=== PATIENT | female | born 1970 | race Asian ===

== ENCOUNTER 2025-05-27 22:27 | Emergency (ER) | payer MEDICAID ==
[~2025-05-27] VITALS: Ht 160 cm; Wt 68.0 kg
[2025-05-27 22:31] VITALS: TEMP 97.6; O2SAT 99
[2025-05-27] MEDS: SODIUM CHLORIDE 0.9% 1,000 ML IV ONE (23:15)
[2025-05-27 23:45] LABS: BASOPHILS % 0.7 % (0.0-2.0); EOSINOPHILS % 4.0 % (0.0-5.0); HEMATOCRIT. 39.3 % (36.0-48.0); HEMOGLOBIN. 12.6 g/dL (12.0-16.0); LYMPHOCYTES % 44.5 % (20.0-50.0); MEAN PLATELET VOLUME 7.9 fl (7.4-10.4); MONOCYTES % 6.1 % (2.0-8.0); NEUTROPHILS % 44.7 % (40.0-76.0); PLATELET 203 x1000/uL (130-400); RED BLOOD CELL COUNT 4.59 mill/uL (4.2-5.4); RED CELL DISTRIBUTION WIDTH 14.4 % (11.6-14.6)
[2025-05-28 00:05] LABS: CREATININE 0.8 mg/dL (0.6-1.0); UREA NITROGEN BLOOD 13 mg/dL (9-23)
[2025-05-28 00:06] LABS: TROPONIN I HIGH SENSITIVITY < 4 ng/L (3.0-34)
[2025-05-28 00:07] LABS: ASPARTATE AMINOTRANSFERASE 15 IU/L (<34); BILIRUBIN DIRECT 0.1 mg/dL (<=3.0); BILIRUBIN TOTAL 0.4 mg/dL (0.1-1.0)
[2025-05-28 00:08] LABS: PROTEIN TOTAL 7.0 g/dL (6.0-8.3)
[2025-05-28 03:45] VITALS: BP 138/80; PULSE 75; RESP 15; O2SAT 98
== END 2025-05-28 03:55 | disposition home or self-care (01) ==
LOC: ER 22:27
DX: R42 Dizziness and giddiness (principal); R53.1 Weakness
CPT/HCPCS: 36415; 80048; 80076; 84484; 85025; 99283